=== PATIENT | female | born 1995 | race Caucasian/White ===

== ENCOUNTER 2022-11-24 14:54 | Emergency (ER) | payer OTHER, SELFPAY ==
--- NOTE | 2022-11-24 14:55 | ED.GENADUL1 ---
HPI - General Adult General Chief complaint: Abdominal Pain Stated complaint: POST OP ISSUES Time Seen by Provider: 11/24/22 14:55 History of Present Illness HPI narrative: Patient presents to emergency department complaining of abdominal pain. Patient is 3 weeks status post at full-term. Patient states after 2 weeks she went to work. 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 Patient states the wound has become very painful has a foul smell to it and she is noted some drainage. She denies any fever, chills, or cough. She denies any chest pain, shortness of breath. Patient denies any hematuria, dysuria. She denies any vaginal discharge. She states she has subcutaneous sutures. She saw her doctor Neeru Peace And everything looked well. In the last 4 days she had increased pain and drainage.Patient denies any trauma. She says she has been using antibacterial soap. Related Data Previous Rx's Medication Instructions Recorded cephalexin 500 mg capsule 500 mg PO TID 7 days #21 caps 11/24/22 cephalexin 500 mg capsule 500 mg PO TID 7 days #21 caps 11/24/22 sulfamethoxazole 800 1 tab PO BID 7 days #14 tabs 11/24/22 mg-trimethoprim 160 mg tablet (Bactrim DS) sulfamethoxazole 800 1 tab PO BID 7 days #14 tabs 11/24/22 mg-trimethoprim 160 mg tablet (Bactrim DS) Allergies Allergy/AdvReac Type Severity Reaction Status Date / Time No Known Drug Allergies Allergy Verified 11/24/22 15:01 Review of Systems ROS Status of ROS 10 or more systems reviewed and unremarkable except as noted in history and below [facility] Social History Smoking status: Current every day smoker Exam Narrative Exam Narrative: Nurses notes and vital signs reviewed and patient is not hypoxic. General: Nontoxic, Well-appearing and in no apparent distress. Skin: Warm, dry, no pallor noted. No Rash Head: Normocephalic, atraumatic. Neck: Supple, non-tender. Eye: Pupils are equal, round and EOMI. No scleral icterus. Ears, Nose, Mouth, and Throat: TM clear, no posterior oropharynx erythema or nasal mucosal hypertrophy, uvula is mid-line Oral mucosa is moist Cardiovascular: Regular Rate and Rhythm without murmur, gallop or rub. Respiratory: No accessory muscle use or respiratory distress. Lungs are clear to auscultation, no wheezing, rales or rhonchi Chest Wall: no tenderness Back: No midline thoracic or lumbar vertebral tenderness. No CVA tenderness Musculoskeletal: normal ROM, no calf or popliteal tenderness, no lower extremity edema/swelling GI: Abdomen is soft, non-distended. Normal bowel sounds. No masses appreciated. low transverse Disposition with 1 cm of surrounding erythema, fake foul smelling drainage, and 3 areas of 5 mm dehiscense. mild lower abd tenderness to palpation. No rebound, guarding, or rigidity noted. Neurological: A&O x4. No cranial nerve dysfunction observed. No truncal ataxia. Moves all extremities. Sensation intact. Psychiatric: Cooperative and interactive. Normal mood and affect. Constitutional Vital Signs - 24 hr 11/24/22 14:56 11/24/22 17:04 11/24/22 17:43 Temperature 98.6 F Pulse Rate [Monitor] 73 58 L 70 Respiratory Rate 18 16 16 Blood Pressure [Right Arm] 163/99 H 125/87 H 128/96 H Pulse Oximetry 97 97 98 Oxygen Delivery Method Room Air Room Air Room Air Course Vital Signs Vital signs: Vital Signs Temperature 98.6 F 11/24/22 14:56 Pulse Rate 73 11/24/22 14:56 Respiratory Rate 18 11/24/22 14:56 Blood Pressure 163/99 H 11/24/22 14:56 Pulse Oximetry 97 11/24/22 14:56 Oxygen Delivery Method Room Air 11/24/22 14:56 Temperature 98.2 F 11/24/22 18:45 Pulse Rate 63 11/24/22 18:45 Respiratory Rate 18 11/24/22 18:45 Blood Pressure 121/91 H 11/24/22 18:45 Pulse Oximetry 98 11/24/22 18:45 Oxygen Delivery Method Room Air 11/24/22 18:45 Medical Decision Making MDM Narrative Medical decision making narrative: Had an IV established, she was given IV fluids and vancomycin. Laboratory studies were ordered. CT scan abdomen and pelvis is pending. The patient is nontoxic. cultures were obtained. All results discussed with patient. Patient is nontoxic. She is given a prescription for Bactrim, and Keflex. She is to follow-up with Dr. Peace in the morning. At this time the patient is without objective evidence of an acute process requiring hospitalization or inpatient management. The patient has remained hemodynamically stable. No additional indication for emergent studies at this time. I answered all questions. Discussed discharge instructions including standard anticipatory guidance and what should prompt a return to the emergency department, including if they get worse are not getting better or develops any new or concerning symptoms. I've given them specific time frame in which to follow-up, and who to follow-up with. The patient demonstrates understanding. Patient is nontoxic and stable for discharge with outpatient follow-up. This note was created with the assistance of a speech recognition program. Although the intention is to generate documents that actually reflects the content of the visit, no guarantees can be provided that every mistake has been identified and corrected by editing. Lab Data Lab results reviewed: Yes I reviewed the patient's lab results Labs: Lab Results 11/24/22 Range/Units 15:00 WBC 10.7 (4.0-11.0) 10^3/uL RBC 4.34 (4.20-5.40) 10^6/uL Hgb 12.8 (12.0-16.0) g/dL Hct 38.4 (36.0-48.0) % MCV 88.5 (81.0-99.0) fL MCH 29.5 (26.7-34.0) pg MCHC 33.3 (29.9-35.2) g/dL RDW 13.2 (11.0-15.0) % Plt Count 474 H (150-450) 10^3/uL MPV 8.8 L (9.5-13.5) fL Neut % (Auto) 65.9 (43.0-75.0) % Lymph % (Auto) 26.8 (20.5-60.0) % [place] % (Auto) 4.8 (1.7-12.0) % Eos % (Auto) 1.6 (0.9-7.0) % Baso % (Auto) 0.6 (0.2-2.0) % Neut # (Auto) 7.0 H (1.4-6.5) 10^3/uL Lymph # (Auto) 2.9 (1.2-3.8) 10^3/uL [place] # (Auto) 0.5 (0.3-0.8) 10^3/uL Eos # (Auto) 0.2 (0.0-0.7) 10^3/uL Baso # (Auto) 0.1 (0.0-0.1) 10^3/uL Abs Immat Gran (auto) 0.03 (0.00-0.03) 10^3/uL Imm/Tot Granulo (auto) 0.3 (0.0-0.5) % Sodium 140 (136-145) mmol/L Potassium 4.1 (3.5-5.1) mmol/L Chloride 106 (98-107) mmol/L Carbon Dioxide 24.3 (21.0-32.0) mmol/L Anion Gap 13.8 BUN 15.0 (7.0-18.0) mg/dL Creatinine 0.72 (0.55-1.02) mg/dL Est GFR ( Amer) >60 (>=60) Est GFR (Non-Af Amer) >60 (>=60) BUN/Creatinine Ratio 20.8 Glucose 92 (74-106) mg/dL Lactate 0.6 (0.4-2.0) mmol/L Calcium 9.2 (8.5-10.1) mg/dL Total Bilirubin 0.3 (0.2-1.0) mg/dL AST 9 L (15-37) U/L ALT 19 (14-59) U/L Alkaline Phosphatase 119 H (46-116) U/L Total Protein 7.5 (6.4-8.2) g/dL Albumin 3.8 (3.4-5.0) g/dL Globulin 3.7 g/dL Albumin/Globulin Ratio 1.0 Discharge Plan Discharge Chief Complaint: Abdominal Pain Clinical Impression: section wound seroma, , Cellulitis, section wound complications Patient Disposition: Home, Self-Care Time of Disposition Decision: 18:18 Condition: Good Mode of Transportation: Private Vehicle Prescriptions / Home Meds: New sulfamethoxazole-trimethoprim [Bactrim DS] 800-160 mg tablet 1 tab PO BID 7 Days Qty: 14 0RF cephalexin 500 mg capsule 500 mg PO TID 7 Days Qty: 21 0RF sulfamethoxazole-trimethoprim [Bactrim DS] 800-160 mg tablet 1 tab PO BID 7 Days Qty: 14 0RF cephalexin 500 mg capsule 500 mg PO TID 7 Days Qty: 21 0RF Instructions: Surgical Site Infections (ED) Stand Alone Forms: Portal Instructions Referrals: Physician,Non-Staff, [Primary Care Provider] - 1 week EMILY PEACE [Physician] - 1 week Discharge Date/Time: 11/24/22 18:52
[2022-11-24 14:56] VITALS: BP 163/99; PULSE 73; RESP 18; TEMP 37; O2SAT 97; BMI 29.1
--- NOTE | 2022-11-24 15:20 | PC.NURSE ---
Pain over incision . Candidiasis noted in the area.
[2022-11-24 15:37] LABS: Basophils Absolute Auto 0.1 10^3/uL (0.0-0.1); Basophils Percent Auto 0.6 % (0.2-2.0); Eosinophils Absolute Auto 0.2 10^3/uL (0.0-0.7); Eosinophils Percent Auto 1.6 % (0.9-7.0); Hematocrit 38.4 % (36.0-48.0); Hemoglobin 12.8 g/dL (12.0-16.0); Immature Granulocytes Abs Auto 0.03 10^3/uL (0.00-0.03); Immature Granulocytes Pct Auto 0.3 % (0.0-0.5); Lymphocytes Absolute Auto 2.9 10^3/uL (1.2-3.8); Lymphocytes Percent Auto 26.8 % (20.5-60.0); Mean Corpuscular HGB Conc 33.3 g/dL (29.9-35.2); Mean Corpuscular Hemoglobin 29.5 pg (26.7-34.0); Mean Corpuscular Volume 88.5 fL (81.0-99.0); Mean Platelet Volume 8.8 fL (9.5-13.5); Monocytes Absolute Auto 0.5 10^3/uL (0.3-0.8); Monocytes Percent Auto 4.8 % (1.7-12.0); Neutrophils Percent Auto 65.9 % (43.0-75.0); Platelet Count 474 10^3/uL (150-450); Red Blood Count 4.34 10^6/uL (4.20-5.40); Red Cell Distribution Width 13.2 % (11.0-15.0); White Blood Count 10.7 10^3/uL (4.0-11.0)
[2022-11-24] MEDS: 0.9 % SODIUM CHLORIDE 1,000 ML 999 ML IV (15:39)
[2022-11-24 15:47] LABS: Alanine Aminotransferase 19 U/L (14-59); Albumin Level 3.8 g/dL (3.4-5.0); Alkaline Phosphatase 119 U/L (46-116); Anion Gap 13.8; Aspartate Amino Transferase 9 U/L (15-37); BUN Creatinine Ratio 20.8; Bilirubin Total 0.3 mg/dL (0.2-1.0); Calcium 9.2 mg/dL (8.5-10.1); Carbon Dioxide 24.3 mmol/L (21.0-32.0); Chloride 106 mmol/L (98-107); Estimated GFR (African America >60 (>=60); Estimated GFR (Non-African Ame >60 (>=60); Globulin 3.7 g/dL; Glucose 92 mg/dL (74-106); Potassium 4.1 mmol/L (3.5-5.1); Sodium 140 mmol/L (136-145); Total Protein 7.5 g/dL (6.4-8.2)
[2022-11-24] MEDS: VANCOMYCIN HCL 1,500 MG in 0.9 % SODIUM CHLORIDE 500 ML 250 MG IV (15:51)
[2022-11-24 16:00] LABS: Lactate/Lactic Acid 0.6 mmol/L (0.4-2.0)
--- NOTE | 2022-11-24 16:25 | CT_ITS ---
[address] [address] Patient Name: FORTINO BARRERA MRN: [id number] date: 1995 Sex: F Assigned Patient Location: ER Current Patient Location: ER Accession/Order Number: [id number] Exam Date: 11/24/2022 16:29 Report Date: 11/24/2022 17:37 At the request of: BUZZ BARRY Procedure: CT abdomen pelvis w con EXAM: CT abdomen pelvis w con HISTORY: postsurgical infection COMPARISON: None. FINDINGS: Telephone Diaphragm Assembler: No pertinent findings, which are not already discussed below. Tubes/lines/drains: None. CHEST: Lungs: Clear. Mediastinum: No cardiomegaly or significant pericardial effusion. ABDOMEN: Liver: Subtle focal fatty infiltration adjacent to the falciform ligament. Gallbladder and Biliary Tree: Unremarkable. Spleen: Unremarkable. Pancreas: Unremarkable. Adrenal Glands: Unremarkable. Kidneys, Ureters, Bladder: No concerning renal lesions or masses. Punctate stone within the right central pelvis. No hydronephrosis or hydroureterosis. Unremarkable bladder. Gastrointestinal: No mural thickening or inflammatory changes. No dilated loops of small or large bowel. Normal appendix. Reproductive organ(s): Recent section of the uterus. No evidence for bladder flap hematoma. No free fluid. No free air. Lymphatic: Unremarkable. Vessels: Unremarkable. BONES AND SOFT TISSUE: Bones: No acute fracture. No concerning osseous lesions. Chronic partially united left posterior 11th rib fracture. Soft Tissue: Low abdominal wall transverse incision with associated dermal thickening and subcutaneous stranding. No focal underlying fluid collection. Mild irregularity, thickening, and stranding of the underlying rectus musculature. Likely small seroma along the lateral inferior margin measuring 0.8 x 1.9 x 1.5 cm. Small 1.5 standard fat-containing above the hernia. IMPRESSION: 1. No acute intra-abdominal/pelvic findings. 2. Postsurgical changes to the lower intra-abdominal wall and underlying rectus with small seroma (abscess is also possible although less favored) as well as dermal thickening/subcutaneous stranding, nonspecific, which could represent cellulitis. 3. Punctate kidney stone within the right central pelvis currently without obstructive nephropathy. Electronically authenticated by: BRIGHT STOLL Date: 11/24/2022 17:37
[2022-11-24 17:04] VITALS: BP 125/87; PULSE 58; RESP 16; O2SAT 97
[2022-11-24 17:43] VITALS: BP 128/96; PULSE 70; RESP 16; O2SAT 98
[2022-11-24 18:45] VITALS: BP 121/91; PULSE 63; RESP 18; TEMP 36.8; O2SAT 98
== END 2022-11-24 18:52 | disposition home or self-care (01) ==
PROVIDERS: Emergency Provider Emergency Medicine
DX: O90.2 Hematoma of obstetric wound (principal); O86.00 Infection of obstetric surgical wound, unspecified
CPT/HCPCS: 36415; 74177; 80053; 83605; 85025; 87040; 87070; 87076; 96374; 99285; J3370; Q9967